=== PATIENT | female | born 1950 ===

== ENCOUNTER 2018-01-01 06:32 | Day surgery (SDC) | payer MEDICARE, MEDICAID ==
[2017-12-31 11:04] VITALS: BMI 17.4
[2018-01-01] MEDS ORDERED: Lactated Ringer's 1,000 ML IV ONE (07:45)
[2018-01-01] MEDS ORDERED: Propofol 10 mg/ml Inj (20 ML) ONE (07:50)
[2018-01-01 08:25] VITALS: O2SAT 100
[2018-01-01 09:04] VITALS: BP 130/69; PULSE 68; RESP 15; TEMP 97
== END 2018-01-01 08:57 | disposition home or self-care (01) ==
LOC: C.ENDO 06:32
PROVIDERS: ATTEND Internal Medicine Gastroenterology
DX: Z12.11 Encounter for screening for malignant neoplasm of colon (principal); D12.4 Benign neoplasm of descending colon; K64.1 Second degree hemorrhoids
CPT/HCPCS: 45380; 88305; J2704; J7120